=== PATIENT | male | born 1965 | race Caucasian/White ===

== ENCOUNTER 2016-03-21 12:51 | Observation (INO) ==
--- NOTE | 2016-03-21 13:49 | Emergency Department Note ---
Disposition Referrals: NO,PCP [Primary Care Provider] - Forms: ED Satisfaction Letter Back Pain HPI - General Chief Complaint: ED Back Pain/Injury Stated Complaint: back pain Time Seen by Provider: 03/21/16 12:55 Source: patient Limitations: no limitations - Related Data Previous Rx's Medication Instructions Recorded Clindamycin [Cleocin] 300 mg PO Q12H #10 capsule 07/18/15 TraMADol [Ultram] 50 mg PO TID PRN #6 tablet 07/18/15 Clindamycin HCl [Cleocin HCl] 300 mg PO QID #28 cap 07/21/15 Diclofenac Sodium [Voltaren] 50 mg PO Q8HR PRN #30 tablet. 07/21/15 Hydrocodone/Acetaminophen [[place] 1 each PO Q4H PRN #4 tablet 07/21/15 5-325 Tablet] Mupirocin [Bactroban Oint] 1 appl TP BID #30 g 07/21/15 Naproxen [Naprosyn] 500 mg PO BID PRN #15 tablet 07/27/15 Naproxen [Naprosyn] 500 mg PO BID #10 tablet 02/08/16 PredniSONE 40 mg PO DAILY #5 tablet 02/08/16 Acetaminophen w/Cod 300-30 mg 1 each PO Q4HR #15 tablet 03/04/16 [Tylenol w/Codeine #3] Cyclobenzaprine [Flexeril] 10 mg PO TID #15 tablet 03/04/16 Cyclobenzaprine [Flexeril] 10 mg PO TID #20 tablet 03/05/16 Ibuprofen [Motrin] 600 mg PO Q6HR PRN #20 tablet 03/05/16 PredniSONE 60 mg PO DAILY #15 tablet 03/05/16 Allergies Allergy/AdvReac Type Severity Reaction Status Date / Time No Known Allergies Allergy Verified 02/08/16 17:33 Past Medical History - Past Medical History Medical history: Reports: no medical history Psychiatric history: Reports: no psych history - Social History Smoking Status: Current every day smoker Smokeless Tobacco Status: No Alcohol use: Reports: none Drug use: Reports: none, marijuana, prescription drug abuse Physical Exam - General Limitations: no limitations General appearance: alert Course Vital Signs Temperature 97.4 F L 03/21/16 12:54 Pulse Rate 77 03/21/16 12:54 Respiratory Rate 18 03/21/16 12:54 Blood Pressure 121/71 02/13/17 12:54 O2 Sat by Pulse Oximetry 96 03/21/16 12:54 Temperature 97.4 F L 03/21/16 12:54 Pulse Rate 77 03/21/16 12:54 Respiratory Rate 18 03/21/16 12:54 Blood Pressure 121/71 03/21/16 12:54 O2 Sat by Pulse Oximetry 96 03/21/16 12:54 Oxygen Delivery Oxygen Delivery Room Air
--- NOTE | 2016-03-21 14:01 | Emergency Department Note ---
START Narrative - START START: Patient initially states that he came to the ER for repeat evaluation of low back pain. He was loudly expressing great disdain for the care he has received in this department recently. I reviewed his past visit history and went to see him right away. He stated, "All you people do is give me a couple days of meds and send me on my way." I explained to him that it is very important to have a Primary care provider to see after any Emergency. He states that he has no car and no medical card. I told him about [place] option and about the public transportation opportunities available. At this point he stated that he was having severe chest pain. He went on to say that he was having chest pain this morning and that that is the real reason he is here today. He also describes feeling short of breath, having fevers and chills. His vitals are normal. He has tenderness to palpation of the lumbar paraspinal muscles. He has no mid- line tenderness, erythema or increased warmth. He has very dry skin. Breath sounds are clear. Heart rate and rhythm are regular. He is not wiling to lie down on the tall, hard table for exam of the abdomen, assessment of leg strength or reflexes. EKG has been ordered. Patient will be moved to a medical bed for further evaluation.
[2016-03-21] MEDS ORDERED: Aspirin 81 MG TAB.CHEW PO ONE (15:26)
--- NOTE | 2016-03-21 15:54 | Emergency Department Note ---
Disposition Clinical Impression: Chest pain Qualifiers: Chest pain type: unspecified Qualified Code(s): R07.9 - Chest pain, unspecified Disposition: Admitted As Inpatient Condition: Good Referrals: NO,PCP [Primary Care Provider] - Forms: ED Satisfaction Letter Time of Disposition: 17:56 Chest Pain HPI - General Chief Complaint: ED Chest Pain Stated Complaint: chest/back pain Time Seen by Provider: 03/21/16 12:55 Source: patient Mode of arrival: wheelchair Limitations: no limitations Vital Signs Reviewed: Yes Nursing Notes Reviewed: Yes - History of Present Illness HPI Narrative: 50-year-old who came in complaining of some back pain and developed chest pain in the lobby. The patient states she's had some intermittent chest pain recently Recent does have a history of borderline blood pressure, he is a smoker , he has elevated cholesterol, and he has a very strong family history of heart disease. 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 07/21/15 Hydrocodone/Acetaminophen [[place] 1 each PO Q4H PRN #4 tablet 07/21/15 5-325 Tablet] Mupirocin [Bactroban Oint] 1 appl TP BID #30 g 07/21/15 Naproxen [Naprosyn] 500 mg PO BID PRN #15 tablet 07/27/15 Naproxen [Naprosyn] 500 mg PO BID #10 tablet 02/08/16 PredniSONE 40 mg PO DAILY #5 tablet 02/08/16 Acetaminophen w/Cod 300-30 mg 1 each PO Q4HR #15 tablet 03/04/16 [Tylenol w/Codeine #3] Cyclobenzaprine [Flexeril] 10 mg PO TID #15 tablet 03/04/16 Cyclobenzaprine [Flexeril] 10 mg PO TID #20 tablet 03/05/16 Ibuprofen [Motrin] 600 mg PO Q6HR PRN #20 tablet 03/05/16 PredniSONE 60 mg PO DAILY #15 tablet 03/05/16 Allergies Allergy/AdvReac Type Severity Reaction Status Date / Time No Known Allergies Allergy Verified 02/08/16 17:33 Constitutional: Denies: fever, chills, weakness, weight change Eyes: Denies: eye pain, eye discharge, vision change ENT ED: Denies: ear pain, throat pain, dental pain, hearing loss, epistaxis, congestion, dysphagia Cardiovascular: Reports: chest pain. Denies: palpitations, dyspnea on exertion , edema, syncope Respiratory: Denies: cough, dyspnea, wheezes, hemoptysis, stridor Gastrointestinal: Denies: abdominal pain, nausea, vomiting, diarrhea, constipation, hematemesis, melena, hematochezia Genitourinary: Denies: urgency, dysuria, frequency, hematuria Musculoskeletal: Denies: back pain, neck pain, arthralgia, myalgia Integumentary: Denies: rash, abrasion, lesions Neurological: Denies: headache, weakness, numbness, paresthesias, confusion, abnormal gait, vertigo Psychiatric: Denies: anxiety, depression, suicidal thoughts, homicidal thoughts , auditory hallucinations, visual hallucinations Endocrine: Denies: fatigue Hematological/Lymphatic: Denies: easy bleeding, easy bruising Allergic/Immunologic: Denies: facial swelling, urticaria Chest Pain PMH - Past Medical History Medical history: Reports: no medical history Psychiatric history: Reports: no psych history - Social History Smoking Status: Current every day smoker Alcohol use: Reports: none Drug use: Reports: none, marijuana, prescription drug abuse Physical Exam - General Limitations: no limitations General appearance: alert - Head Head exam: atraumatic, normocephalic, normal inspection - Eye Eye exam: Present: normal appearance, PERRL, EOMI - ENT ENT exam: normal exam, normal oropharynx, mucous membranes moist - Neck Neck exam: Present: normal inspection, full ROM, trachea midline - Chest Chest inspection: Present: normal inspection, symmetric chest wall rise - Respiratory Respiratory exam: Present: normal lung sounds bilaterally - Cardiovascular Cardiovascular exam: Present: regular rate, normal rhythm, normal heart sounds - Abdominal Exam Abdominal exam: Present: soft, Non-Tender. Absent: tenderness, distention, guarding, rebound, rigidity - Extremities Exam Extremities exam: Present: normal inspection, full ROM. Absent: tenderness, pedal edema - Expanded Lower Extremity Exam Neurovascular/Tendon exam: Present: normal capillary refill Gait: observed and normal - Back Exam Back exam: Present: normal inspection, full ROM. Absent: tenderness - Neurological Exam Neurological exam: Present: alert, oriented X3 - Psychiatric Psychiatric exam: Present: normal affect, normal mood - Skin Skin exam: Present: warm, dry, intact, normal color Course - Reevaluation(s) Reevaluation #1: 50-year-old male with multiple risk factors comes in complaining of chest pain. Very strong family history. Will admit for rule out. Time: 17:56 - Consultations Consultation #1: Discussed with Dr. Angel, admit. Time: 17:57 Vital Signs Temperature 97.4 F L 03/21/16 12:54 Pulse Rate 77 03/21/16 12:54 Respiratory Rate 18 03/21/16 12:54 Blood Pressure 121/71 03/21/16 12:54 O2 Sat by Pulse Oximetry 96 03/21/16 12:54 Temperature 97.4 F L 03/21/16 12:54 Pulse Rate 71 03/21/16 17:37 Respiratory Rate 20 03/21/16 17:37 Blood Pressure 106/63 03/21/16 17:37 O2 Sat by Pulse Oximetry 100 03/21/16 17:37 Oxygen Delivery Oxygen Delivery Nasal Cannula Chest Pain - Lab Data Lab results reviewed: Yes I reviewed the patient's lab results. Result diagrams: 03/21/16 15:53 03/21/16 15:53 Lab Results 03/21/16 03/21/16 03/21/16 Range/Units 15:53 15:53 15:53 WBC 12.6 H (4.3-11.1) K/mcL RBC 4.50 (4.19-5.50) M/mcL Hgb 14.5 (12.9-16.9) g/dL Hct 40.5 (37.5-50.1) % MCV 90.0 (83.0-100.0) fL MCH 32.2 (28.0-33.3) pg MCHC 35.8 H (31.6-35.5) g/dL RDW 12.3 (11.5-14.5) % Plt Count 430 H (140-400) K/mcL MPV 8.7 L (9.4-12.4) fL Immature Gran % 0.7 (0-4) % Seg Neutrophils % 78.5 % Lymphocytes % 12.4 % Monocytes % 7.5 % Eosinophils % 0.3 % Basophils % 0.6 % Neutrophils # 9.9 H (1.6-8.9) K/mcL Lymphocytes # 1.6 (0.6-4.6) K/mcL Monocytes # 1.0 (0.0-1.3) K/mcL Eosinophils # 0.0 (0.0-0.6) K/mcL Basophils # 0.1 (0.0-0.2) K/mcL PT 17.0 H (9.4-12.1) Seconds INR 1.6 APTT 28.7 (26.0-36.0) Seconds Sodium 131 L (136-145) mEq/L Potassium 4.2 (3.5-4.5) mEq/L Chloride 97 L (98-109) mEq/L Carbon Dioxide 25 (19-29) mEq/L BUN 14 (8-26) mg/dL Creatinine 0.78 (0.72-1.25) mg/dL Est GFR ( Amer) > 60 (> 60) Est GFR (Non-Af Amer) > 60 (> 60) BUN/Creatinine Ratio 18 (6-26) Glucose 145 H (70-99) mg/dL Calculated Osmolality 275 L (280-300) Calcium 9.5 (8.6-10.8) mg/dL Troponin I (0-0.03) ng/mL 03/21/16 Range/Units 15:53 WBC (4.3-11.1) K/mcL RBC (4.19-5.50) M/mcL Hgb (12.9-16.9) g/dL Hct (37.5-50.1) % MCV (83.0-100.0) fL MCH (28.0-33.3) pg MCHC (31.6-35.5) g/dL RDW (11.5-14.5) % Plt Count (140-400) K/mcL MPV (9.4-12.4) fL Immature Gran % (0-4) % Seg Neutrophils % % Lymphocytes % % Monocytes % % Eosinophils % % Basophils % % Neutrophils # (1.6-8.9) K/mcL Lymphocytes # (0.6-4.6) K/mcL Monocytes # (0.0-1.3) K/mcL Eosinophils # (0.0-0.6) K/mcL Basophils # (0.0-0.2) K/mcL PT (9.4-12.1) Seconds INR APTT (26.0-36.0) Seconds Sodium (136-145) mEq/L Potassium (3.5-4.5) mEq/L Chloride (98-109) mEq/L Carbon Dioxide (19-29) mEq/L BUN (8-26) mg/dL Creatinine (0.72-1.25) mg/dL Est GFR ( Amer) (> 60) Est GFR (Non-Af Amer) (> 60) BUN/Creatinine Ratio (6-26) Glucose (70-99) mg/dL Calculated Osmolality (280-300) Calcium (8.6-10.8) mg/dL Troponin I 0.00 (0-0.03) ng/mL - Radiology Data Radiology results reviewed: Yes I reviewed the patient's radiology results. Chest X-Ray 03/21/16 15:26 IMPRESSION: No acute cardiopulmonary disease. D/ / Albert Darling MD / Albert Darling MD Interpreting Provider: Albert Darling MD - EKG Data EKG attestation: Yes I reviewed and interpreted this EKG. EKG shows normal: sinus rhythm Rate: normal Rhythm: NSR Interpretation: no acute changes Heart Score - Score History: Slightly Suspicious EKG: Normal Age: 45-65 Risk Factors: Equal/Greater than 3 risk factor or history of atherosclerotic disease Troponin: Less than normal limit HEART Score Total: 3
[2016-03-21 16:15] LABS: Basophils # 0.1 K/mcL (0.0-0.2); Basophils % 0.6 %; Eosinophils % 0.3 %; Hematocrit 40.5 % (37.5-50.1); Hemoglobin 14.5 g/dL (12.9-16.9); Immature Granulocytes % 0.7 % (0-4); Lymphocytes # 1.6 K/mcL (0.6-4.6); Lymphocytes % 12.4 %; Mean Corpuscular HGB Conc 35.8 g/dL (31.6-35.5); Mean Corpuscular Hemoglobin 32.2 pg (28.0-33.3); Mean Platelet Volume 8.7 fL (9.4-12.4); Monocytes % 7.5 %; Neutrophils # 9.9 K/mcL (1.6-8.9); Platelet Count 430 K/mcL (140-400); Red Cell Distribution Width 12.3 % (11.5-14.5); Segmented Neutrophils % 78.5 %
[2016-03-21 16:22] LABS: INR 1.6
[2016-03-21 16:25] LABS: Activated Partial Thrombo Time 28.7 Seconds (26.0-36.0)
[2016-03-21 16:27] LABS: BUN/Creatinine Ratio 18 (6-26); Blood Urea Nitrogen 14 mg/dL (8-26); Calcium 9.5 mg/dL (8.6-10.8); Carbon Dioxide 25 mEq/L (19-29); Chloride 97 mEq/L (98-109); Glucose 145 mg/dL (70-99); Osmolality,Calculated 275 (280-300); Potassium 4.2 mEq/L (3.5-4.5); Sodium 131 mEq/L (136-145); eGFR For African Americans > 60 (> 60); eGFR For Non-African Americans > 60 (> 60)
[2016-03-21] MEDS ORDERED: Nitroglycerin 0.4 MG TAB.SUBL SL STA (20:23)
[2016-03-21] MEDS ORDERED: Ibuprofen 400 MG TABLET PO PRN (20:48)
[2016-03-21] MEDS ORDERED: Naloxone 0.4 MG/ML INJ IVP PRN (20:48)
[2016-03-21] MEDS: *HR* HYDROcodone/Acet 5/325 mg TABLET PO PRN (21:46)
--- NOTE | 2016-03-22 00:21 | Internal Med History&Physical ---
Date of Encounter: 03/22/16 Time of Encounter: 00:15 Assessment and Plan (1) Chest pain Current visit: Yes Status: Acute Patient with chest pain in middle of chest, nonradiating. Risk factors of HTN, HLD, smoker, family history. Pain is now resolved. Initial troponin was negative at 0.0. continuous practice clinician serial troponins for trend stress test in the morning. Qualifiers: Chest pain type: precordial pain Qualified Code(s): R07.2 - Precordial pain (2) Lumbar back pain Current visit: Yes Status: Acute Patient report back pain started one weak ago after lifting a heavy board. Pain is described as sharp, exacerbated by movement. 2 view xray of lumbar spine ordered Cameron PRN for pain Qualifiers: Chronicity: acute Back pain laterality: midline Sciatica presence: without sciatica Qualified Code(s): M54.5 - Low back pain (3) DVT prophylaxis Current visit: Yes Status: Acute Ambulate as tolerated anti-embolic stockings Lovenox 40mg SQ daily Internal Medicine - H&P: HPI Chief complaint: back pain Admitted From: Emergency Dept Plans for Post Hospital Care: Home History of present illness: Mr. Ruiz is a 50 year old male with reported history of hypertension hyperlipidemia, presented to ED today with complaints of low back pain and chest pain. the low back pain started 1 week ago after he lifted a heavy board. It is aggravated with moving, bending, walking. He has tried ibuprofen , heat and ice without relief. He denies any gait disturbance, loss of bowel or bladder control. While in the ED, he developed chest pain, in the middle of his chest,did not radiate. He has a brother who of an IA in the last year. Other risk factors include smoking. He denies any palpitations, PAK, dizziness or lightheadedness. Patient complains of losing weight, on review of records he was 58.9kg 1 year ago and is now 61.2kg. Evaluation in the ED included CXR which showed no acute cardiopulmonary disease, EKG showed normal sinus rhythm, Troponin was negative at 0.0. On my exam, patient reports the chest pain has resolved. He is complaining of low back pain. Pain is reproducible with leg raise and on palpation of the lumbar spine. Lungs are clear to auscultation, heart has regular rate and rhythm. Past Med Surg Social Fam HX - Past Medical History Medical history: hyperlipidemia, hypertension Psychiatric history: no psych history - Past Surgical History Surgical History: herniorrhaphy, knee replacement - Social History Smoking Status: Current every day smoker Smokeless Tobacco Status: No Alcohol use: none Drug use: cocaine (history), marijuana, IVDU (history of heroin), prescription drug abuse - Family History Mother Adopted: No Family Member Ethnicity: Non- Living Status: Hx Family Cardiac Disorders: Yes (brother) Hx Family Respiratory Disorders: Yes (Mother) Hx Family Cancer: Yes (mother) Hx Family GI Disorders: No Hx Family Genitourinary Disorders: No Hx Family Endocrine Disorder: No Hx Family Musculoskeletal Disorders: No Hx Family Neuromuscular Disorders: No Hx Family Neurologic Disorders: No Hx Family HEENT Disorders: No Hx Family Autoimmune Disorders: No Hx Family Reproductive Disorders: No Hx Family Psychosocial Disorders: No Hx Family Medical Disorders: No Internal Medicine - H&P: Meds Allergies No Known Allergies Allergy (Verified 02/08/16 17:33) All Systems PM: A 10-system review of systems was performed and is negative for pertinent findings except as documented above in the HPI. - Constitutional Constitutional: no chills, no fever(s), no night sweats - EENT Eyes: no change in vision, no discharge, no pain, no photophobia Nose, mouth and throat: no dysphagia, no nasal discharge, no neck pain, no sore throat - Cardiovascular Cardiovascular ROS IM: chest pain, no diaphoresis, no dyspnea, no lightheadedness, no palpitations, no syncope - Respiratory Respiratory: no cough, no dyspnea, no wheezing, no excessive phlegm production - Gastrointestinal Gastrointestinal: no abdominal pain, no diarrhea, no hematemesis, no hematochezia, no melena, no nausea, no vomiting - Musculoskeletal Musculoskeletal ROS IM: back pain, no numbness, no tingling - Integumentary Integumentary IM: no rash, no unusual bruising - Neurological Neurological ROS: no confusion, no convulsions, no focal weakness, no numbness, no tingling, no tremor(s) - Hematologic/Lymphatic Hematologic/Lymphatic: no easy bruising - Constitutional Vitals: Temp Pulse Resp BP Pulse Ox 98.6 F 88 15 100/64 99 03/21/16 23:32 03/21/16 23:32 03/21/16 23:32 03/21/16 23:32 03/21/16 23:32 General appearance: Present: A&O X 3, no acute distress - Head Head exam: Present: atraumatic, normocephalic - Eye Eye exam: Present: PERRL, conjuntiva pink, sclera anicteric Pupils: Present: PERRL - Neck Neck exam general surgery: Present: supple, trachea midline. Absent: lymphadenopathy - Respiratory Respiratory exam: Present: CTAB. Absent: accessory muscle use, rales, rhonchi, wheezes - Cardiovascular Cardiovascular exam: Present: RRR, +S1, +S2. Absent: diastolic murmur, gallop, rubs, systolic murmur - GI/Abdominal GI/Abdominal exam: Present: normal bowel sounds, soft, no peritoneal signs. Absent: distended, tenderness - Extremities Exam Extremities exam: Present: warm, radial pulses palpable and symetrical. Absent : calf tenderness, cyanotic, pedal edema - Back Exam Back exam: Present: paraspinal tenderness (lumbar spine), vertebral tenderness ( lumbar spine) - Neurological Exam Neurological exam: Present: CN II-XII intact, oriented X3, no focal deficits, strengths equal and symetr throughout. Absent: facial droop, speech deficit - Skin Skin exam: Present: dry, intact Internal Med - H&P Results - Labs CBC & Chem 7: 03/21/16 15:53 03/21/16 15:53 Labs: Cardiac Enzymes 03/21/16 Range/Units 21:36 Troponin I 0.00 (0-0.03) ng/mL All Lab Results (24 Hours) 03/21/16 03/21/16 03/21/16 Range/Units 15:53 15:53 15:53 WBC 12.6 H (4.3-11.1) K/mcL RBC 4.50 (4.19-5.50) M/mcL Hgb 14.5 (12.9-16.9) g/dL Hct 40.5 (37.5-50.1) % MCV 90.0 (83.0-100.0) fL MCH 32.2 (28.0-33.3) pg MCHC 35.8 H (31.6-35.5) g/dL RDW 12.3 (11.5-14.5) % Plt Count 430 H (140-400) K/mcL MPV 8.7 L (9.4-12.4) fL Immature Gran % 0.7 (0-4) % Seg Neutrophils % 78.5 % Lymphocytes % 12.4 % Monocytes % 7.5 % Eosinophils % 0.3 % Basophils % 0.6 % Neutrophils # 9.9 H (1.6-8.9) K/mcL Lymphocytes # 1.6 (0.6-4.6) K/mcL Monocytes # 1.0 (0.0-1.3) K/mcL Eosinophils # 0.0 (0.0-0.6) K/mcL Basophils # 0.1 (0.0-0.2) K/mcL PT 17.0 H (9.4-12.1) Seconds INR 1.6 APTT 28.7 (26.0-36.0) Seconds Sodium 131 L (136-145) mEq/L Potassium 4.2 (3.5-4.5) mEq/L Chloride 97 L (98-109) mEq/L Carbon Dioxide 25 (19-29) mEq/L BUN 14 (8-26) mg/dL Creatinine 0.78 (0.72-1.25) mg/dL Est GFR ( Amer) > 60 (> 60) Est GFR (Non-Af Amer) > 60 (> 60) BUN/Creatinine Ratio 18 (6-26) Glucose 145 H (70-99) mg/dL Calculated Osmolality 275 L (280-300) Calcium 9.5 (8.6-10.8) mg/dL Troponin I (0-0.03) ng/mL 03/21/16 03/21/16 Range/Units 15:53 21:36 WBC (4.3-11.1) K/mcL RBC (4.19-5.50) M/mcL Hgb (12.9-16.9) g/dL Hct (37.5-50.1) % MCV (83.0-100.0) fL MCH (28.0-33.3) pg MCHC (31.6-35.5) g/dL RDW (11.5-14.5) % Plt Count (140-400) K/mcL MPV (9.4-12.4) fL Immature Gran % (0-4) % Seg Neutrophils % % Lymphocytes % % Monocytes % % Eosinophils % % Basophils % % Neutrophils # (1.6-8.9) K/mcL Lymphocytes # (0.6-4.6) K/mcL Monocytes # (0.0-1.3) K/mcL Eosinophils # (0.0-0.6) K/mcL Basophils # (0.0-0.2) K/mcL PT (9.4-12.1) Seconds INR APTT (26.0-36.0) Seconds Sodium (136-145) mEq/L Potassium (3.5-4.5) mEq/L Chloride (98-109) mEq/L Carbon Dioxide (19-29) mEq/L BUN (8-26) mg/dL Creatinine (0.72-1.25) mg/dL Est GFR ( Amer) (> 60) Est GFR (Non-Af Amer) (> 60) BUN/Creatinine Ratio (6-26) Glucose (70-99) mg/dL Calculated Osmolality (280-300) Calcium (8.6-10.8) mg/dL Troponin I 0.00 0.00 (0-0.03) ng/mL
[2016-03-22] MEDS: *HR* HYDROcodone/Acet 5/325 mg TABLET PO PRN ×3 (02:58→18:28)
--- NOTE | 2016-03-22 03:47 | Event Note ---
Date of Encounter: 03/22/16 Time of Encounter: 03:45 Patient seen and examined with nurse practitioner. Patient presents with atypical chest pain. Patient is under are lots of financial stress and family stress. No relational pain with exertion. No ischemic EKG changes. Troponin so far normal. Exercise treadmill in the morning. He has low back pain for the past week after he lift heavy objects at work. With get x-ray of the lumbar spine. He mentioned that he has weight loss however on reviewing the chart we have not noted any weight loss over the past year. Observation admission
[2016-03-22] MEDS ORDERED: Nicotine 21 MG PATCH.TD24 TD SCH (04:00)
[2016-03-22 05:18] LABS: Basophils # 0.1 K/mcL (0.0-0.2); Basophils % 0.6 %; Eosinophils # 0.1 K/mcL (0.0-0.6); Eosinophils % 0.9 %; Hematocrit 36.9 % (37.5-50.1); Hemoglobin 13.1 g/dL (12.9-16.9); Immature Granulocytes % 0.8 % (0-4); Lymphocytes # 1.8 K/mcL (0.6-4.6); Lymphocytes % 16.9 %; Mean Corpuscular HGB Conc 35.5 g/dL (31.6-35.5); Mean Corpuscular Hemoglobin 32.1 pg (28.0-33.3); Mean Corpuscular Volume 90.4 fL (83.0-100.0); Monocytes # 1.1 K/mcL (0.0-1.3); Monocytes % 10.1 %; Neutrophils # 7.6 K/mcL (1.6-8.9); Platelet Count 415 K/mcL (140-400); Red Blood Count 4.08 M/mcL (4.19-5.50); Red Cell Distribution Width 12.5 % (11.5-14.5); Segmented Neutrophils % 70.7 %
[2016-03-22 06:03] LABS: BUN/Creatinine Ratio 24 (6-26); Blood Urea Nitrogen 17 mg/dL (8-26); Calcium 8.8 mg/dL (8.6-10.8); Carbon Dioxide 23 mEq/L (19-29); Chloride 102 mEq/L (98-109); Glucose 142 mg/dL (70-99); Osmolality,Calculated 282 (280-300); Potassium 4.1 mEq/L (3.5-4.5); Sodium 134 mEq/L (136-145); eGFR For African Americans > 60 (> 60); eGFR For Non-African Americans > 60 (> 60)
[2016-03-22] MEDS: *HR* Heparin 5,000 UNIT/ML VIAL SQ SCH ×2 (06:38→18:24)
[2016-03-22] MEDS: Aspirin Enteric Coated 81 MG Tablet PO SCH (10:05)
[2016-03-22] MEDS: Famotidine 20 MG TABLET PO SCH (10:05)
--- NOTE | 2016-03-22 17:38 | Internal Med Progress Note ---
Date of Encounter: 03/22/16 Time of Encounter: 10:00 - Assessment and plan (1) Chest pain Current Visit: Yes Status: Acute Assessment and plan: Etiology is undetermined. Chest x-ray negative, EKG unremarkable, 3 sets of troponin negative. Plan for nuclear stress test tomorrow. Qualifiers: Chest pain type: precordial pain Qualified Code(s): R07.2 - Precordial pain (2) Lumbar back pain Current Visit: Yes Status: Acute Assessment and plan: Lumbar spine x-ray result unremarkable. Possibly muscle pain, pain management. Qualifiers: Chronicity: acute Back pain laterality: midline Sciatica presence: without sciatica Qualified Code(s): M54.5 - Low back pain (3) DVT prophylaxis Current Visit: Yes Status: Acute Assessment and plan: Heparin subcutaneously - Time Spent With Patient 25 - 35 minutes - Subjective Interval history: Patient is a 50-year-old male admitted for chest pain. His past medical history is significant for hypertension, hyperlipidemia, back pain. Patient was seen and examined, had no more chest pain, no shortness of breath, complaining of whole-body ache, in no acute distress. Vital signs stable. 3 sets of troponin negative. Patient was ordered exercise nuclear stress test which was canceled because he is on nicotine patch. Will order pharmacy nuclear stress test tomorrow. Continue closely monitor patient. Pain management. - Constitutional Vitals: Temp Pulse Resp BP Pulse Ox 98.1 F 76 15 99/61 98 03/22/16 15:18 03/22/16 15:18 03/22/16 15:18 03/22/16 15:18 03/22/16 15:18 General appearance: Present: A&O X 3, no acute distress - Head Head exam: Present: atraumatic, normocephalic - Eye Eye exam: Present: PERRL, conjuntiva pink, sclera anicteric Pupils: Present: PERRL - Neck Neck exam general surgery: Present: supple, trachea midline. Absent: lymphadenopathy - Respiratory Respiratory exam: Present: CTAB. Absent: accessory muscle use, rales, rhonchi, wheezes - Cardiovascular Cardiovascular exam: Present: RRR, +S1, +S2. Absent: diastolic murmur, gallop, rubs, systolic murmur - GI/Abdominal GI/Abdominal exam: Present: normal bowel sounds, soft, no peritoneal signs. Absent: distended, tenderness - Extremities Exam Extremities exam: Present: warm, radial pulses palpable and symetrical. Absent : calf tenderness, cyanotic, pedal edema - Neurological Exam Neurological exam: Present: CN II-XII intact, oriented X3, no focal deficits. Absent: pronater drift, facial droop, speech deficit - Skin Skin exam: Present: dry, intact Internal Medicine: Result - Labs CBC & Chem 7: 03/22/16 04:35 03/22/16 04:35 Labs: Short CBC 03/22/16 Range/Units 04:35 WBC 10.8 (4.3-11.1) K/mcL Hgb 13.1 (12.9-16.9) g/dL Hct 36.9 L (37.5-50.1) % Plt Count 415 H (140-400) K/mcL Neutrophils # 7.6 (1.6-8.9) K/mcL BMP 03/22/16 04:35 Sodium 134 L Potassium 4.1 Chloride 102 Carbon Dioxide 23 BUN 17 Creatinine 0.72 Glucose 142 H Calcium 8.8 Cardiac Enzymes 03/21/16 03/22/16 Range/Units 21:36 04:35 Troponin I 0.00 0.00 (0-0.03) ng/mL - ABG Interpretation ABG results: PT/INR, D-dimer PT 17.0 Seconds (9.4-12.1) H 03/21/16 15:53 - Impressions Impressions Lumbar Spine X-Ray 03/22/16 23:45 IMPRESSION: 1. No acute abnormality of the lumbar spine. 2. Stable multilevel degenerative disc disease, most notable at the L5-S1 level, where by a vacuum disc phenomenon is present. D/ / 03/22/2016 11:45:32 Neto Cotto MD / Araseli Tarango Interpreting Provider: Neto Cotto MD Consult Discharge Plan - Plan Referrals: NO,PCP [Primary Care Provider] -
--- NOTE | 2016-03-22 19:03 | Electrocardiograph Report ---
[place] [id number] Test Date: 2016-03-21 Pat Name: Sriram Ruiz Department: 104 Room: 3B Gender: M [employer] Tender: : 1965 Requested By: Tyler Osborne Order Number: [id number] Reading MD: Yareli Colindres Measurements Intervals [place] Rate: 70 P: 72 [place]: 135 QRS: 86 QRSD: 110 T: 49 QT: 393 QTc: 413 Interpretive Statements SINUS RHYTHM POSSIBLE LEFT ATRIAL ENLARGEMENT Electronically Signed On 03-22-2016 19:02:02 EST by Yareli Colindres
[2016-03-23] MEDS: *HR* HYDROcodone/Acet 5/325 mg TABLET PO PRN ×2 (00:02→10:52)
[2016-03-23] MEDS: *HR* Heparin 5,000 UNIT/ML VIAL SQ SCH (06:25)
[2016-03-23] MEDS ORDERED: Regadenoson 0.4 MG/5 ML SYRINGE IVP ONE (06:50)
--- NOTE | 2016-03-23 10:44 | Nuclear Medicine Stress Report ---
Regadenoson Nuclear Stress Name: Sriram Ruiz Date of Study: 03/23/2016 Date: 1965 Ht: 66.0 in Medical Record#: [id number] Age: 50 Wt: 130.0 lb Gender: Male Order #: [id number] Location: [facility] Room: [facility] Supervising Provider: ePña Hensley CNP Reading Physician: David Day DO, CLAYTON, VALARIE HARDING Ordering Physician: Corby Brown MD Primary Care Physician: None Stress Technologist: Deandre Gore, FUNERAL GREETER, CPFT Slot Floor Supervisor: Tai Rdz Indications: Chest Pain Impression: Pharmacologic stress ECG is negative for ischemia at level of heart rate achieved. Gated EF = 55%. Small sized, mild intensity, fixed defect in the inferoseptal segments suggestive of artifact. Perfusion imaging was negative for ischemia or infarct. History: History of Smoking Stress Test Summary: Stress Test Type: Pharmacologic Regadenoson 0.4mg/5ml given IV Baseline Information: Initial Heart Rate: 78 Blood Pressure: 108/68 Stress Information: Stress Time: 4 min 00 sec Test Terminated Due to (primary): As per protocol Maximum Blood Pressure: 102/62 Maximum Heart Rate: 99 Percent Maximum Heart Rate Achieved: 57 Double Product: [id number] METS Reached: 1 Symptoms: Shortness of breath Nuclear Summary: SPECT myocardial perfusion imaging using Tc99m Sestamibi given intravenously was performed at rest and following cardiac stress testing. The resting images were obtained following initial dose of 10.5 mCi. Following stress an additional dose of 32.6 mCi was given at peak exercise or 30 seconds post regadenoson infusion. Medication Given: Time Medication Dose Units Route Findings: Stress Note * Resting ECG demonstrated normal sinus rhythm. * No baseline arrhythmias were noted. * Pharmacologic stress ECG is negative for ischemia at level of heart rate achieved. * No arrhythmias were noted during stress. * Patient had no chest pain during stress. * Normal hemodynamic responses to pharmacologic stress. Study Quality * Study quality is average. Gated EF % * Gated EF = 55%. Left Ventricle * The left ventricle is not dilated. LVEDV = 128 mL. NORMALS * Normal wall motion. Inferior Perfusion Rest * The inferoseptal segments show a mild reduction in perfusion. Inferior Perfusion Stress * The inferoseptal segments show a mild reduction in perfusion. TID * No evidence of transient ischemic dilatation. TID ratio = 0.97. Lung Uptake * There is no evidence of increase lung uptake. Updated by David Day DO, CLAYTON, MEHDI, VALARIE on 03/23/2016 10:37:36 AM electronically signed on 03/23/2016 10:38:58 AM with status of Final
[2016-03-23] MEDS: Famotidine 20 MG TABLET PO SCH (10:52)
[2016-03-23] MEDS: Aspirin Enteric Coated 81 MG Tablet PO SCH (10:52)
[2016-03-23 10:59] VITALS: BP 103/65
--- NOTE | 2016-03-23 13:36 | Discharge Summary ---
Date of Encounter: 03/23/16 Time of Encounter: 13:00 - Discharge Diagnosis (1) Chest pain Priority: Primary Status: Acute Qualifiers: Chest pain type: precordial pain Qualified Code(s): R07.2 - Precordial pain (2) Lumbar back pain Priority: Primary Status: Acute Qualifiers: Chronicity: acute Back pain laterality: midline Sciatica presence: without sciatica Qualified Code(s): M54.5 - Low back pain (3) DVT prophylaxis Priority: Secondary Status: Acute - Discharge Medications Prescriptions: Famotidine [Pepcid] 20 mg PO DAILY #20 tablet Naproxen [Naprosyn] 250 mg PO BID #20 tablet Home Medications: Famotidine [Pepcid] 20 mg PO DAILY #20 tablet 03/23/16 [Rx] Naproxen [Naprosyn] 250 mg PO BID #20 tablet 03/23/16 [Rx] Allergies/Adverse Reactions: Allergies No Known Allergies Allergy (Verified 03/22/16 11:50) Procedures/tests Complete & Pending: Procedures Performed prior 72 hours Category Date Time Status CT abd pelvis wo no iv no oral [CT] Stat Cat Scan 03/23/16 11:14 Draft NM adi perf SPECT multi [NM] Routine Exams 03/22/16 16:41 Taken SP pharm nuclear stress Routine Y 03/23/16 08:30 Completed Date of admission: 03/21/16 18:10 Primary care physician: PCP NO Consults: 03/21/16 21:11 Consult to Manager Regional Sales [CONS] Routine Reason for SW Consult: fiancial issues Discharging clinician: Corby Brown Anticipated date of discharge: 03/23/16 - Patient Status Disposition: Home, Self-Care Condition: Good Functional capacity at discharge: independent ambulation Overall status at discharge: patient is back to baseline - Discharge Instructions Follow Up With: NO,PCP [Primary Care Provider] - - Diet and Activity Activity: increase activity as tolerated Diet: regular diet Interval History: Mr. Ruiz is a 50 year old male with reported history of hypertension hyperlipidemia, presented to ED today with complaints of low back pain and chest pain. the low back pain started 1 week ago after he lifted a heavy board. It is aggravated with moving, bending, walking. He has tried ibuprofen , heat and ice without relief. He denies any gait disturbance, loss of bowel or bladder control. While in the ED, he developed chest pain, in the middle of his chest,did not radiate. He has a brother who of an AR in the last year. Other risk factors include smoking. He denies any palpitations, PAK, dizziness or lightheadedness. Patient complains of losing weight, on review of records he was 58.9kg 1 year ago and is now 61.2kg. Evaluation in the ED included CXR which showed no acute cardiopulmonary disease, EKG showed normal sinus rhythm, Troponin was negative at 0.0. On my exam, patient reports the chest pain has resolved. He is complaining of low back pain. Pain is reproducible with leg raise and on palpation of the lumbar spine. Lungs are clear to auscultation, heart has regular rate and rhythm. Hospital course: Mr. Ruiz is a 50 year old male admitted for chest pain and low back pain. He was placed on cardiac monitoring. EKG was done, results are remarkable. 3 sets of troponin negative. Patient had stress test done, shows no ischemia. Patient had x-ray of L-SPINE, there is no fracture or other acute abnormalities. Patient is chest pain-free right now. Still complaining low back pain, can be controlled by pain medication. With discharge patient home with pain medication. He will follow-up with PCP as outpatient. I saw and examined the patient today, he is awake alert, oriented 3. In no acute distress. Vitals are stable. Labs reviewed, results are unremarkable. We will discharge patient home and follow-up with PCP today. - Time Spent with Patient Total time spent providing and/or coordinating discharge services: 40 minutes Greater than 30 minutes - Constitutional Vitals: Temp Pulse Resp BP Pulse Ox 98.1 F 71 16 103/65 100 03/23/16 10:56 03/23/16 10:56 03/23/16 10:56 03/23/16 10:56 03/23/16 10:56 General appearance: Present: A&O X 3, no acute distress
== END 2016-03-23 15:50 | disposition home or self-care (01) ==
LOC: EMEROO 12:51 → 3BNU 12:51 → SUATTDRO 18:10 → 3BNU 18:59
PROVIDERS: ADMIT Hospitalist; ATTEND Internal Medicine